=== PATIENT | female | born 1985 | race Caucasian/White ===

== ENCOUNTER 2019-12-03 19:27 | Emergency (ER) | payer OTHER, SELFPAY ==
[2019-12-03 19:37] VITALS: BP 135/63; PULSE 78; RESP 16; TEMP 36.8; O2SAT 99; BMI 30.2
--- NOTE | 2019-12-03 20:07 | DI.RAD.S_ITS ---
PROCEDURE: XR SHOULDER RT MIN 2V INDICATIONS: R shoulder pain, thinks it is dislocated TECHNIQUE: 3 views of the shoulder were acquired. COMPARISON: None. FINDINGS: Bones: The humeral head is in normal position within the glenoid. There are osseous densities adjacent to the humeral head laterally. These are near the insertion of the rotator cough tendons, and could represent calcific tendinosis. It would be difficult to exclude a fracture however. Soft tissues: No suspicious soft tissue calcifications. IMPRESSION: No dislocation. Ossific densities laterally adjacent to the humeral head may represent acute avulsion fracture fragments in the setting of recent trauma with associated point tenderness. There is no obvious fracture donor site, however. Alternatively, these could represent calcific tendinosis. Dictated by: Angelito Lilly M.D. on 12/03/2019 at 20:19 Approved by: Angelito Lilly M.D. on 12/03/2019 at 20:21
--- NOTE | 2019-12-03 20:56 | ED.EXTPRO ---
HPI - Extremity Problem <STEPHANY Rollins - Last Filed: 12/03/19 21:03> General Chief complaint: Extremity Problem,Nontraumatic Stated complaint: states dislocated right shoulder Time Seen by Provider: 12/03/19 19:36 Source: patient Mode of arrival: Ambulatory Limitations: no limitations History of Present Illness HPI Narrative: 34-year-old female presents emergency department for right shoulder pain. She states she noticed the shoulder pain that started a couple weeks ago. Patient states her right shoulder pain increased approximately 5 days ago. Patient saw of physical therapist and was told to do specific exercises as she thought the shoulder may have subluxed. Approximately 5 days ago patient had her massage the shoulder when she felt a pop and noted increased pain. She states it is painful to move her shoulder, and it is significantly painful to push on her deltoid muscle. Patient states the pain is a dull aching pain, that radiates down her arm. She took ibuprofen at 3:00 p.m. today. Patient denies any direct trauma to the area, chest pain, shortness of breath, RUQ pain, dizziness, fevers, or any other concerns. She denies any lacerations. Related Data Allergies Allergy/AdvReac Type Severity Reaction Status Date / Time Opioids - Morphine Analogues AdvReac Vomiting Verified 12/03/19 19:48 prednisone AdvReac weight gain Verified 12/03/19 19:50 Review of Systems <STEPHANY Rollins - Last Filed: 12/03/19 21:03> Review of Systems Narrative: REVIEW OF SYSTEMS: GENERAL: Denies fever or chills. HENT: No head trauma. EYES: No vision changes. CARDIOVASCULAR: No chest pain. RESPIRATORY: No shortness of breath or cough. GASTROINTESTINAL: No nausea. GENITOURINARY: No flank pain. MUSCULOSKELETAL: Complains of right shoulder pain, see HPI. INTEGUMENTARY: No rash, lesions, or pruritus. NEURO: No numbness, tingling. PSYCH: No behavior or mood changes. Patient History <STEHPANY Rollins - Last Filed: 12/03/19 21:03> Medical History Depo-Provera contraceptive status (Acute) Social History Smoking Status: Current some day smoker Smoking Status: Current some day smoker alcohol intake frequency: 0-2 drinks per day Substance Use Type: does not use Exam <STEPHANY Rollins - Last Filed: 12/03/19 21:03> Initial Vital Signs Initial Vital Signs: Vital Signs Temperature 98.2 F 12/03/19 19:37 Pulse Rate 78 12/03/19 19:37 Respiratory Rate 16 12/03/19 19:37 Blood Pressure 135/63 12/03/19 19:37 Pulse Oximetry 99 12/03/19 19:37 PHYSICAL EXAMINATION: GENERAL: Well groomed, alert, and cooperative. Answers questions promptly and appropriately. Vital signs noted. HENT: Normocephalic, atraumatic. EYES: Symmetrical, sclera white, no periorbital swelling. CARDIOVASCULAR: Regular rate. RESPIRATORY: Normal respiratory rate, trachea midline, airway patent. No stridor, nasal flaring or accessory muscle use. MUSCULOSKELETAL: Focal tenderness to right mid biceps, increased pain with movement. Patient has decreased internal and external rotation to pain. No erythema, ecchymosis, or swelling noted. No pain with palpation to elbow, wrist, or hand. No lesions. Equal metal machine setter strength bilaterally EXTREMITIES: CMS intact. Radial pulses 2+ and equal bilaterally. SKIN: Warm, dry, soft, appropriate color for ethnicity. No lesions, rashes, or wounds. NEURO: Alert and Oriented X 3. No sensory deficits. PSYCH: Appropriate affect and mood. <Nima Quinn DO - Last Filed: 12/04/19 06:19> Initial Vital Signs Initial Vital Signs: Vital Signs Temperature 98.2 F 12/03/19 19:37 Pulse Rate 78 12/03/19 19:37 Respiratory Rate 16 12/03/19 19:37 Blood Pressure 135/63 12/03/19 19:37 Pulse Oximetry 99 12/03/19 19:37 Course <STEPHANY Rollins - Last Filed: 12/03/19 21:03> Orders Ordered: Discontinued Medications Ketorolac Tromethamine (Toradol) 30 mg IM NOW ONE Stop: 12/03/19 20:54 Last Admin: 12/03/19 21:06 Dose: 30 mg Documented by: ROME Vital Signs Vital signs: Vital Signs - 8 hr 12/03/19 19:37 Temperature 98.2 F Pulse Rate 78 Respiratory Rate 16 Blood Pressure 135/63 Pulse Oximetry 99 <Nima Quinn DO - Last Filed: 12/04/19 06:19> Orders Ordered: Discontinued Medications Ketorolac Tromethamine (Toradol) 30 mg IM NOW ONE Stop: 12/03/19 20:54 Last Admin: 12/03/19 21:06 Dose: 30 mg Documented by: ROME Vital Signs Vital signs: Vital Signs - 8 hr 12/03/19 19:37 Temperature 98.2 F Pulse Rate 78 Respiratory Rate 16 Blood Pressure 135/63 Pulse Oximetry 99 MDM - Extremity (Nontraumatic) <STEPHANY Rollins - Last Filed: 12/03/19 21:03> Medical Records Attestation: I reviewed the patient's medical records. Lab Data Attestation: I reviewed the patient's lab results. Imaging Data Extremity x-ray #1: Radiologist's Impression: [address] [address] XRay Report Signed Patient: Laure Lopez [facility]#: [id number] : 1985Acct:[id number] Age/Sex: 34 / FDate of Service: 12/03/19 Loc: ED Accession Number: [id number] Procedure: XR shoulder RT min 2V Ordering Provider: Andreina Aquino PROCEDURE: XR SHOULDER RT MIN 2V INDICATIONS: R shoulder pain, thinks it is dislocated TECHNIQUE: 3 views of the shoulder were acquired. COMPARISON: None. FINDINGS: Bones: The humeral head is in normal position within the glenoid. There are osseous densities adjacent to the humeral head laterally. These are near the insertion of the rotator cough tendons, and could represent calcific tendinosis. It would be difficult to exclude a fracture however. Soft tissues: No suspicious soft tissue calcifications. IMPRESSION: No dislocation. Ossific densities laterally adjacent to the humeral head may represent acute avulsion fracture fragments in the setting of recent trauma with associated point tenderness. There is no obvious fracture donor site, however. Alternatively, these could represent calcific tendinosis. Dictated by: Angelito Lilly M.D. on 12/03/2019 at 20:19 Approved by: Angelito Lilly M.D. on 12/03/2019 at 20:21 [facility] Narrative Medical decision making narrative: History and examination concerning for calcified tendinitis versus avulsion fracture. Most likely calcified tendinitis given recent history and lack of trauma. However due to focal tenderness, patient was referred to Ortho. Patient was given Toradol in the emergency department today help with pain. Patient was also given a sling. Return precautions given for new or worsened this. Discharge Plan Departure Patient Disposition: Home Clinical Impression: Shoulder pain Qualifiers: Chronicity: acute Laterality: right Qualified Code(s): M25.511 - Pain in right shoulder Discharge Date/Time: 12/03/19 21:30 Instructions: DI for Shoulder Pain Activity Restrictions/Additional Instructions: Thank you for entrusting me with your care today. As discussed, there were calcifications seen on your x-ray. As discussed this may be due to calcified tendinitis versus a small avulsion fracture. We have given you a sling, please wear this to help reduce pain. Remember to move your hand and wrist frequently to prevent muscle atrophy. I have referred you to orthopedic, please call the admitted to schedule an appointment. Return emergency department for any new or worsening symptoms such as the trouble vomiting, high fevers, or any other concerns. Referrals: Loc Lucas MD [Non-Staff] - <Nima Quinn DO - Last Filed: 12/04/19 06:19> Cosign ED Attending Cosignature Attestation: I was immediately available in the department for consultation. This documentation has been reviewed and I agree with assessment and plan. Supervised by Nima Quinn DO
[2019-12-03] MEDS: KETOROLAC 60 MG/2 ML VIAL 30 MG IM (21:06)
== END 2019-12-03 21:30 | disposition home or self-care (01) ==
PROVIDERS: Emergency Provider Nurse Practitioner
DX: M25.511 Pain in right shoulder (principal)
CPT/HCPCS: 73030; 96372; 99283; J1885